=== PATIENT | female | born 1985 | race Caucasian/White ===

== ENCOUNTER → 2025-04-10 | Outpatient (CLI) | payer MEDICAID, SELFPAY ==
--- NOTE | 2025-04-10 13:21 | MRI_ITS ---
PROCEDURE: MRI BRAIN W/WO CONTRAST; MRV HEAD WITHOUT CONTRAST 04/10/2025 REASON FOR EXAM: PAPILLEDEMA LT 6TH NERVE PALSY R/O MASS; VENOUS SINUS THROMBOSIS TECHNIQUE: Procedure Code: [id number]; MRIMRV HEAD Modality: MR Procedure: BRAIN W/WO CONTRAST; MRV HEAD WITHOUT CONTRAST Multiplanar and multisequential MRI of the brain was performed without and with IV gadolinium based contrast. Noncontrast [id number] MR venography of the brain, with multiplanar 2D and 3D post processing was performed. CONTRAST: Clariscan VOLUME: 11 mL COMPARISON: None available. FINDINGS: BRAIN: Ventricular and sulcal size and configuration are within normal limits. Cerebellar tonsils are normally situated. Partially empty sella turcica, and prominent enlargement of the bilateral Meckel's caves, which can be seen with elevated intracranial pressure. No regions of abnormal restricted diffusion. No intracranial mass lesion, extra- axial collection, or pathologic enhancement. Focus of probable arrested pneumatization at the right petrous apex. Well-aerated paranasal sinuses and mastoid air cells. Mildly prominent fluid in the bilateral optic nerve sheaths with flattening at the optic head insertions of the posterior globes, suggestive of papilledema. Orbital contents otherwise unremarkable. MRV HEAD: Superficial and deep cerebral venous systems appear patent. No evidence for dural venous sinus thrombosis. Narrow caliber/flattening of the bilateral transverse venous sinuses, more pronounced on the left, which is suggestive of elevated intracranial CSF pressure. MRI/MRV Head Without Contrast IMPRESSION: Multiple findings suggestive of elevated intracranial CSF pressure (pseudotumor cerebri) including partially empty sella, orbital papilledema, enlarged Meckel's caves, and narrow caliber/flattening of the [place] sverse venous sinuses. No mass lesion or dural venous sinus thrombosis. Reading Location: [facility]
--- NOTE | 2025-04-10 13:21 | MRI_ITS ---
PROCEDURE: MRI BRAIN W/WO CONTRAST; MRV HEAD WITHOUT CONTRAST 04/10/2025 REASON FOR EXAM: PAPILLEDEMA LT 6TH NERVE PALSY R/O MASS; VENOUS SINUS THROMBOSIS TECHNIQUE: Procedure Code: [id number]; MRIMRV HEAD Modality: MR Procedure: BRAIN W/WO CONTRAST; MRV HEAD WITHOUT CONTRAST Multiplanar and multisequential MRI of the brain was performed without and with IV gadolinium based contrast. Noncontrast [id number] MR venography of the brain, with multiplanar 2D and 3D post processing was performed. CONTRAST: Clariscan VOLUME: 11 mL COMPARISON: None available. FINDINGS: BRAIN: Ventricular and sulcal size and configuration are within normal limits. Cerebellar tonsils are normally situated. Partially empty sella turcica, and prominent enlargement of the bilateral Meckel's caves, which can be seen with elevated intracranial pressure. No regions of abnormal restricted diffusion. No intracranial mass lesion, extra- axial collection, or pathologic enhancement. Focus of probable arrested pneumatization at the right petrous apex. Well-aerated paranasal sinuses and mastoid air cells. Mildly prominent fluid in the bilateral optic nerve sheaths with flattening at the optic head insertions of the posterior globes, suggestive of papilledema. Orbital contents otherwise unremarkable. MRV HEAD: Superficial and deep cerebral venous systems appear patent. No evidence for dural venous sinus thrombosis. Narrow caliber/flattening of the bilateral transverse venous sinuses, more pronounced on the left, which is suggestive of elevated intracranial CSF pressure. MRI/Brain W/WO Contrast IMPRESSION: Multiple findings suggestive of elevated intracranial CSF pressure (pseudotumor cerebri) including partially empty sella, orbital papilledema, enlarged Meckel's caves, and narrow caliber/flattening of the [place] sverse venous sinuses. No mass lesion or dural venous sinus thrombosis. Reading Location: [facility]
== END | disposition home or self-care (01) ==
LOC: MRI 13:14
PROVIDERS: Referring Provider Ophthalmology; Visit Provider Ophthalmology
DX: H47.10 Unspecified papilledema (principal); H49.22 Sixth [abducent] nerve palsy, left eye
CPT/HCPCS: 70544; 70553; A9575; A4216

== ENCOUNTER → 2025-04-17 | Outpatient (CLI) | payer MEDICAID, SELFPAY ==
--- NOTE | 2025-04-17 10:25 | RAD_ITS ---
PROCEDURE: DX LUMBAR PUNCTURE W/IMG GUIDE 04/17/2025 REASON FOR EXAM: POSSIBLE PSEUDOTUMOR CEREBRI TECHNIQUE: Procedure Code: [id number] Modality: DX Procedure: DX LUMBAR PUNCTURE W/IMG GUIDE The procedure as well as the benefits and possible complications including infection, headaches and bleeding were explained to the patient. Informed consent was obtained. The patient was in the prone position. The overlying skin was prepped and draped in the usual sterile fashion. Following local anesthetic application, a lumbar puncture was performed at the L2-L3 level. Free flow of CSF was noted. The opening pressure measures 16 mm. 12 cc of clear CSF was aspirated. Radiation dose: 67 seconds of fluoroscopy. 16.5 mGy. COMPARISON: None FINDINGS: Opening pressure 16 mm. RAD/Dx Lumbar Puncture w/IMG Guide IMPRESSION: Successful lumbar puncture. The patient tolerated the procedure well. Reading Location: [place] [id number]
[2025-04-17 10:27] VITALS: BP 146/93; PULSE 89; RESP 16; TEMP 37.1; O2SAT 99; BMI 25.4
[2025-04-17] MEDS: Lidocaine 2% (5ml sdv) 5 ML VIAL.MPF INFILT (10:45)
[2025-04-17 11:00] VITALS: BP 129/80; PULSE 74; RESP 16; O2SAT 98
[2025-04-17 11:45] VITALS: BP 127/89; PULSE 68; RESP 16; O2SAT 98
[2025-04-17 13:39] LABS: Appearance CSF (character) CLEAR (Clear); Auto B Fluid Analyzer BKGD Ct COUNTS W/IN LIMITS (W/IN LIMITS); CSF Color COLORLESS (Colorless); RBC Count, Spinal Fluid 0 /mm-3 (None seen); Tested Tube # 3; White Count, CSF 1 /mm-3 (0 - 5)
[2025-04-17 13:40] LABS: Body Fluid QC Type(s) BF1Q
== END | disposition home or self-care (01) ==
PROVIDERS: Referring Provider Ophthalmology; Visit Provider Ophthalmology
DX: H47.10 Unspecified papilledema (principal)
CPT/HCPCS: 62328; 87070; 87205; 89050; 89051

== ENCOUNTER → 2025-04-24 | Outpatient (CLI) | payer MEDICAID, SELFPAY ==
[2025-04-24 16:23] LABS: Hematocrit 38.5 % (37-47); Hemoglobin 13.0 g/dL (12.0-15.0); Immature Granulocytes Count 0.060 X10^3/uL (0.0-0.0); Mean Corp Hgb Conc 33.8 g/dL (32-36); Mean Corpuscular Volume 90.4 fL (81-99); Mean Platelet Vol. 9.2 fl (6.2-12.0); NRBC Flagged by Analyzer 0 % (0-5); Platelet Count 382 K/mm3 (150-450); RBC Distribution Width CV 13.1 % (11.6-14.6); RBC Distribution Width SD 43.0 fl (35.1-43.9); Red Blood Count 4.26 M/mm3 (4.2-5.4); White Blood Count 12.9 K/mm3 (4.4-11.0)
[2025-04-24 16:28] LABS: AST(SGOT) 20 U/L (<=31); Alanine Aminotransfer ALT/SGPT 27 U/L (<=34); Albumin, Serum 4.7 g/dL (3.5-5.0); Alkaline Phosphatase 65 U/L (35-104); Anion Gap 14 (5-15); Bilirubin, Direct 0.14 mg/dL (0.00-0.30); Carbon Dioxide 17.0 mmol/L (21.0-32.0); Chloride 105 mmol/L (98-108); Globulin 3.1 g/dL (2.2-4.2); HIV Nonreactive (Nonreactive); Potassium 3.6 mmol/L (3.3-5.1); Syphilis Antibodies Nonreactive (Nonreactive)
[2025-04-24 16:48] LABS: CRP < 3.00 mg/L (0.0-3.0)
[2025-04-25 09:53] LABS: BUN 14 mg/dL (4-19)
[2025-04-30 17:08] LABS: Angiotensin Convert Enzyme 53 U/L (14-82); Hematocrit 41.6 % (34.0-46.6); Hemoglobin 13.5 g/dL (11.1-15.9); MCH 30.8 pg (26.6-33.0); MCHC 32.5 g/dL (31.5-35.7); MCV 95 fL (79-97); Percent % CD4 Pos. Lymph. 52.6 % (30.8-58.5); QNTFERON TB Mitogen Value > 10.00 IU/mL (.); QNTFERON TB Nil Value 0.02 IU/mL (.); QNTFERON TB1+ Ag Value 0.17 IU/mL (.); QNTFERON TB2+ Ag Value 0.11 IU/mL (.); QNTIFERON TB Positive Criteria Negative (Negative); RDW 12.8 % (11.7-15.4)
== END | disposition home or self-care (01) ==
LOC: MTLAB 11:01
PROVIDERS: Referring Provider Ophthalmology; Visit Provider Ophthalmology
DX: H47.10 Unspecified papilledema (principal)
CPT/HCPCS: 36415; 80051; 80076; 82164; 82565; 84520; 85025; 85652; 86140; 86361; 86431; 86480; 86617; 86703; 86780